=== PATIENT | male | born 1975 | race Caucasian/White ===

== ENCOUNTER 2021-04-26 13:58 | Outpatient (CLI) | payer OTHER, SELFPAY ==
[2021-04-26 16:15] LABS: SARS-CoV-2 Ag Negative (Negative)
[2021-04-27 21:12] LABS: SARS-CoV-2 RNA PCR Negative
== END 2021-04-26 13:59 | disposition home or self-care (01) ==
LOC: CHSLAB 14:02
PROVIDERS: PCP Family Medicine; Visit Provider Family Medicine
DX: Z20.822 Contact with and (suspected) exposure to COVID-19 (principal)
CPT/HCPCS: 87426; C9803; U0003; U0005

== ENCOUNTER 2021-06-03 10:15 | Outpatient (CLI) | payer OTHER, SELFPAY ==
[2021-06-03 11:12] LABS: SARS-CoV-2 Ag Positive (Negative)
[2021-06-03 11:24] LABS: SARS-CoV-2 RNA PCR Positive (Negative)
== END 2021-06-03 10:16 | disposition home or self-care (01) ==
LOC: CHSLAB 10:17
PROVIDERS: PCP Family Medicine; Visit Provider Family Medicine
DX: U07.1 COVID-19 (principal)
CPT/HCPCS: 87426; C9803; U0003; U0005